=== PATIENT | male | born 1955 | race African-American/Black ===

== ENCOUNTER 2018-07-22 13:43 | Emergency (ER) | payer OTHER ==
--- NOTE | 2018-07-22 13:58 | PDOC ---
History of Present Illness - General Chief Complaint: Headache Stated Complaint: HEADACHE Time Seen by Provider: 07/22/18 13:58 - History of Present Illness Initial Comments: 07/22/18 14:31 62yo male with hx of tension headaches presents for eval of a tension nobles. Pt states the nobles has been present x 2 weeks. States the headache started gradually and has been worsening. States he used to take elavil and baclofen for the nobles. States he follows with a PMD at [facility] and an orthopedic surgeon at [facility]. Pt states he has appts to see both docs the 2nd week of July. Pt denies head trauma. States he has chronic neck pain, R shoulder pain, and b/l hip pain. Pt with hx of surgery to the R shoulder, b/l hip replacements. Pt denies f/c. No blurred vision. No change in vision. No paresthesias. No weakness. No cp/sob. No cough. NO abd pain. No n/v./d. States he had his meds refilled 3 weeks ago but his elavil and baclofen and percocet were not refilled. Pt states this nobles is similar to prior tension nobles in the past. PMHx: DM, COPD, HTN PShx: R shoulder, b/l hip sx Allergies: ASA-gastric ulcer bleeding Past History - Past Medical History Allergies/Adverse Reactions: Allergies Allergy/AdvReac Type Severity Reaction Status Date / Time aspirin AdvReac Intermediate Verified 07/22/18 13:45 Home Medications: Ambulatory Orders Baclofen 10 mg PO TID PRN #12 tablet 07/22/18 Losartan Potassium 50 mg PO DAILY 07/22/18 Metformin HCl [Glucophage] 1,000 mg PO BID 07/22/18 Salmeterol/Fluticasone [Advair 100Mcg/50Mcg -] 1 puff IH DAILY 07/22/18 Zolpidem Tartrate [Ambien] 5 mg PO HS 07/22/18 Diabetes: Yes HTN: Yes - Suicide/Smoking/Psychosocial Hx Smoking History: Former smoker Have you smoked in the past 12 months: No If you are a former smoker, when did you quit?: 1 YEAR 'Breaking Loose' booklet given: 08/16/13 Hx Alcohol Use: Yes (RARE) Substance Use Type: Alcohol Review of Systems - Review of Systems Able to Perform ROS?: Yes Is the patient limited Honduran proficient: No Constitutional: No: Chills, Fever HEENTM: No: Eye Pain, Blurred Vision, Nose Pain, Nose Congestion, Throat Pain Respiratory: No: Cough, Shortness of Breath, SOB with Exertion, SOB at Rest, Wheezing Cardiac (ROS): No: Chest Pain, Lightheadedness, Palpitations ABD/GI: No: Diarrhea, Nausea, Vomiting, Abdominal cramping : No: Burning, Dysuria Musculoskeletal: No: Back Pain, Neck Pain Integumentary: No: Bruising, Rash Neurological: Yes: Headache. No: Numbness, Paresthesia, Seizure, Tingling, Weakness, Unsteady Gait, Ataxia All Other Systems: Reviewed and Negative *Physical Exam - Vital Signs 07/22/18 14:35 Selected Entries 07/22/18 13:44 Temperature 98.4 F Pulse Rate 104 H Respiratory 16 Rate Blood Pressure 127/93 Blood Pressure 104 Mean O2 Sat by Pulse 96 Oximetry (%) Weight 145.15 kg - Physical Exam General Appearance: Yes: Nourished, Appropriately Dressed. No: Apparent Distress HEENT: positive: EOMI, JENNIFER, Normal Voice, Pharynx Normal. negative: Rhinorrhea Neck: positive: Supple, Other (no stepoffs, no midline ttp, no deformities). negative: Rigid Respiratory/Chest: positive: Lungs Clear, Normal Breath Sounds. negative: Chest Tender, Respiratory Distress Cardiovascular: positive: Regular Rhythm, Regular Rate, S1, S2 Gastrointestinal/Abdominal: positive: Normal Bowel Sounds, Soft. negative: Guarding, Rebound, Tenderness Musculoskeletal: positive: Normal Inspection. negative: CVA Tenderness Extremity: positive: Normal Capillary Refill, Normal Inspection, Normal Range of Motion. negative: Swelling, Calf Tenderness Integumentary: positive: Normal Color, Dry, Warm Neurologic: positive: product marketing director II-XII NML intact, Fully Oriented, Alert, Normal Mood/ Affect, Normal Response, Motor Strength 5/5, Responsive. negative: Numbness, Sensory Deficit ED Treatment Course - LABORATORY CBC & Chemistry Diagram: 07/22/18 14:37 07/22/18 14:37 Medical Decision Making - Medical Decision Making 07/22/18 14:36 a/p: 62yo male with hx of tension nobles - dx at [facility] with a nobles x 2 weeks -neuro intact -hx of head trauma 3 years ago, had imaging at the time -nobles since the head trauma -hx of DM and does not check his glucose -will check labs, toradol, reglan, ivf -will monitor and reassess 07/22/18 15:09 re-eval: pt states nobles resolved requesting a dose of baclofen to help his chronic neck pain will dose in the ED labs reviewed and discussed with the patient. 07/22/18 15:54 pt feeling much better no pain at this time stable for dc to home. discussed follow up with neurology and his pmd/ortho as scheduled answered all questions. *DC/Admit/Observation/Transfer Diagnosis at time of Disposition: Headache - Discharge Dispostion Disposition: HOME Condition at time of disposition: Stable Decision to Admit order: No - Prescriptions Prescriptions: Baclofen 10 mg PO TID PRN #12 tablet PRN Reason: Muscle Spasms - Referrals Referrals: Adin Capone MD [Staff Physician] - - Patient Instructions Printed Discharge Instructions: DI for Headache Additional Instructions: Please take all medications as prescribed. Please take tylenol as needed for the headache. Please follow up with your PMD and your orthopedic surgeon as scheduled. Please return to the ED with any further concerns or complaints. - Post Discharge Activity
[2018-07-22 14:01] VITALS: BP 127/93; PULSE 104; TEMP 98.4; BMI 39.9
[2018-07-22] MEDS ORDERED: KETOROLAC TROMETHAMINE 30 MG/1 ML VIAL IVPUSH ONE (14:15)
[2018-07-22] MEDS ORDERED: METOCLOPRAMIDE HCL INJECTION 10 MG/2 ML VIAL IVPUSH ONE (14:15)
[2018-07-22] MEDS ORDERED: SODIUM CHLORIDE 0.9% 1000 ML INFUS.BAG IV ONE (14:15)
[2018-07-22] MEDS ORDERED: METOCLOPRAMIDE HCL INJECTION 10 MG/2 ML VIAL ONE (14:39)
[2018-07-22] MEDS ORDERED: KETOROLAC TROMETHAMINE 30 MG/1 ML VIAL ONE (14:39)
[2018-07-22 14:52] LABS: BASO % 1.9 % (0-2.0); EOS % 3.6 % (0-4.5); HEMATOCRIT 45.9 % (35.4-49); HEMOGLOBIN 14.7 GM/dl (11.7-16.9); LYMPH % 24.1 % (8-40); MCH 25.5 pg (25.7-33.7); MEAN CELL VOLUME 79.8 fl (80-96); MEAN PLT VOLUME 8.7 fl (7.5-11.1); MONO % 5.9 % (3.8-10.2); NEUT % 64.5 % (42.8-82.8); PLATELET COUNT 414 K/MM3 (134-434); RBC 5.76 M/mm3 (4.00-5.60); RDW 15.9 % (11.9-15.9); WHITE BLOOD COUNT 7.6 K/mm3 (4.0-10.8)
[2018-07-22 15:00] LABS: ALBUMIN 3.7 g/dl (3.5-5.0); ALK PHOS 73 U/L (32-92); ANION GAP 7 MMOL/L (8-16); BILIRUBIN,TOTAL 0.5 mg/dl (0.2-1.0); BLOOD UREA NITROGEN 19 mg/dl (7-18); CHLORIDE 101 mmol/L (98-107); CO2 30 mmol/L (22-28); CREATININE 1.2 mg/dl (0.6-1.3); GLUCOSE,RANDOM 188 mg/dl (74-106); POTASSIUM 3.8 mmol/L (3.5-5.1); SGOT/AST 21 U/L (10-42); SGPT/ALT 17 U/L (10-40); SODIUM 138 mmol/L (136-145); TOT PROT 7.8 g/dl (6.4-8.3)
[2018-07-22] MEDS ORDERED: BACLOFEN 10 MG TABLET (FP) PO ONE (15:09)
== END 2018-07-22 16:09 | disposition home or self-care (01) ==
LOC: FER 13:43
PROC: 3E0337Z Introduction of Electrolytic and Water Balance Substance into Peripheral Vein, Percutaneous Approach (ICD-10-PCS; principal; 2018-07-22)
PROC: 3E0333Z Introduction of Anti-inflammatory into Peripheral Vein, Percutaneous Approach (ICD-10-PCS; 2018-07-22)
PROC: 3E033GC Introduction of Other Therapeutic Substance into Peripheral Vein, Percutaneous Approach (ICD-10-PCS; 2018-07-22)
DX: R51 Headache (principal); Z87.891 Personal history of nicotine dependence; I10 Essential (primary) hypertension; E11.9 Type 2 diabetes mellitus without complications
CPT/HCPCS: 36415; 80053; 85025; 99282-25; J0475; J7030

== ENCOUNTER 2018-09-04 21:46 | Emergency (ER) | payer OTHER ==
--- NOTE | 2018-09-04 21:54 | PDOC ---
History of Present Illness - General History Source: Patient Exam Limitations: No Limitations - History of Present Illness Initial Comments: 09/04/18 22:11 The patient is a 63 year old male, with a significant past medical history of COPD and tension headaches who presents to the emergency department with several days of a tension headache. The patient notes he did not take any medication for the pain. The patients pain is aggravated when lying down but subsides after a while. Patient states he takes elavil and baclofen for his blood pressure. The patient has an appointment with his neurologist 2 days from today. PAST SURGICAL HISTORY: Shoulder surgery (2011) FAMILY HISTORY: no pertinent history SOCIAL HISTORY: Pt lives with family and is employed. Every day smoker (1 pack a day) MEDICATIONS: reviewed ALLERGIES: Aspirin <Carli Talamantes - Last Filed: 09/04/18 22:15> - General History Source: Patient Exam Limitations: No Limitations - History of Present Illness Initial Comments: 09/04/18 21:59 A portion of this note was documented by scribe services under my direction. I have reviewed the details of the note, within reason, and agree with the documentation with the following case summary and management plan written by me. Patient treated in the ED. Nursing notes are reviewed and incorporated into the medical decision-making. Vital signs reviewed. Assessment plan: This is 63-year-old male who comes in complaining of a tension headache. Patient has not taken anything for his headache. Patient has an appointment with a neurologist for 2 days from now to it follow-up regarding his headaches in addition to that patient is on losartan for hypertension and has not taken his losartan in a couple of days either. We'll give patient Toradol, Reglan, losartan and reassess 09/04/18 22:37 Reevaluation, patient's symptoms have resolved. Patient was better and wants to go home <Janet Cristina I - Last Filed: 09/04/18 22:38> - General Chief Complaint: Pain, Acute Stated Complaint: TENSION HEADACHE Time Seen by Provider: 09/04/18 21:51 Past History <Carli Talamantes - Last Filed: 09/04/18 22:15> - Past Medical History COPD: Yes Diabetes: Yes HTN: Yes - Suicide/Smoking/Psychosocial Hx Smoking History: Former smoker Have you smoked in the past 12 months: No Number of Cigarettes Smoked Daily: 15 If you are a former smoker, when did you quit?: 1 YEAR 'Breaking Loose' booklet given: 08/16/13 Hx Alcohol Use: Yes (RARE) Drug/Substance Use Hx: Yes (WEED) Substance Use Type: Alcohol <Janet Cristina I - Last Filed: 09/04/18 22:38> - Past Medical History Allergies/Adverse Reactions: Allergies Allergy/AdvReac Type Severity Reaction Status Date / Time aspirin AdvReac Intermediate Verified 09/04/18 21:48 Home Medications: Ambulatory Orders Baclofen 10 mg PO TID PRN #12 tablet 07/22/18 Losartan Potassium 50 mg PO DAILY 07/22/18 Metformin HCl [Glucophage] 1,000 mg PO BID 07/22/18 Salmeterol/Fluticasone [Advair 100Mcg/50Mcg -] 1 puff IH DAILY 07/22/18 Zolpidem Tartrate [Ambien] 5 mg PO HS 07/22/18 Amitriptyline HCl 25 mg PO DAILY 09/04/18 Review of Systems - Review of Systems Able to Perform ROS?: Yes Comments:: 09/04/18 22:13 General: No fevers or chills, no weakness, no weight loss HEENT: No change in vision. No sore throat,. No ear pain CardioVascular: No chest pain or shortness of breath Respiratory:No cough, or wheezing. Gastrointestinal: no nausea, vomiting, diarrhea or constipation, No rectal bleeding Genitourinary: No dysuria, hematuria, or frequency Musculoskeletal: No joint or muscle pain or swelling Neurologic: (+) tension headache. No vertigo, dizziness or loss of consciousness Psychiatric: nor depression Skin: No rashes or easy bruising Endocrine: no increased thirst or abnormal weight change Allergic: no skin or latex allergy All other systems reviewed and normal All Other Systems: Reviewed and Negative <Carli Talamantes - Last Filed: 09/04/18 22:15> *Physical Exam - Vital Signs Last Vital Signs Temp Pulse Resp BP Pulse Ox 98.1 F 93 H 20 157/93 100 09/04/18 21:52 09/04/18 21:52 09/04/18 21:52 09/04/18 21:52 09/04/18 21:52 - Physical Exam Comments: 09/04/18 22:13 GENERAL: The patient is awake, alert, and fully oriented, in no acute distress. HEAD: Normal with no signs of trauma. EYES: Pupils equal, round and reactive to light, extraocular movements intact, sclera anicteric, conjunctiva clear. EXTREMITIES: Normal range of motion, no edema. NEUROLOGICAL: Normal speech, normal gait. PSYCH: Normal mood, normal affect. SKIN: Warm, Dry, normal turgor, no rashes or lesions noted. <Carli Talamantes - Last Filed: 09/04/18 22:15> Moderate Sedation - Procedure Monitoring Vital Signs: Procedure Monitoring Vital Signs Temperature 98.1 F 09/04/18 21:52 Pulse Rate 93 H 09/04/18 21:52 Respiratory Rate 20 09/04/18 21:52 Blood Pressure 157/93 09/04/18 21:52 O2 Sat by Pulse Oximetry (%) 100 09/04/18 21:52 <Carli Talamantes - Last Filed: 09/04/18 22:15> ED Treatment Course - Medications Given in the ED: ED Medications Discontinued Medications Generic Name Dose Route Start Last Admin Trade Name Freq PRN Reason Stop Dose Admin Metoclopramide HCl 10 mg 09/04/18 21:58 09/04/18 22:09 Reglan Injection - IM 09/04/18 21:59 10 mg ONCE ONE Administration <Carli Talamantes - Last Filed: 09/04/18 22:15> *DC/Admit/Observation/Transfer - Attestations Scribe Attestion: 09/04/18 22:14 Documentation prepared by Carli Talamantes, acting as medical supply technician for Janet Cristina MD <Carli Talamantes - Last Filed: 09/04/18 22:15> - Discharge Dispostion Decision to Admit order: No <Janet Cristina I - Last Filed: 09/04/18 22:38> Diagnosis at time of Disposition: Headache - Discharge Dispostion Disposition: HOME Condition at time of disposition: Stable - Patient Instructions Additional Instructions: Take 2 extra strength Tylenol if symptoms/headache return. Keep your appointment with a neurologist Return to the emergency department immediately with ANY new, persistent or worsening symptoms. Continue any medications as previously prescribed by your physician. You should follow up with your primary doctor as soon as possible regarding today's emergency department visit. . Please make sure your doctor reviews the results of your emergency evaluation. Thank you for coming to the Emergency Department today for your care. It was a pleasure to see you today. Please note that your evaluation is INCOMPLETE until you follow-up with your doctor.
[2018-09-04 21:58] VITALS: BP 157/93; PULSE 93; TEMP 98.1; BMI 43.7
[2018-09-04] MEDS ORDERED: LOSARTAN POTASSIUM 50 MG TABLET (FP) PO ONE (21:58)
[2018-09-04] MEDS ORDERED: KETOROLAC TROMETHAMINE 60 MG/2 ML VIAL IM ONE ×2 (21:58→22:13)
[2018-09-04] MEDS ORDERED: METOCLOPRAMIDE HCL INJECTION 10 MG/2 ML VIAL IM ONE (21:58)
[2018-09-04] MEDS ORDERED: KETOROLAC TROMETHAMINE 60 MG/2 ML VIAL ONE (22:01)
[2018-09-04] MEDS ORDERED: METOCLOPRAMIDE HCL 10 MG TABLET (FP) PO ONE (22:01)
[2018-09-04] MEDS ORDERED: METOCLOPRAMIDE HCL INJECTION 10 MG/2 ML VIAL ONE (22:01)
== END 2018-09-04 22:43 | disposition home or self-care (01) ==
LOC: FER 21:46
PROC: 3E0233Z Introduction of Anti-inflammatory into Muscle, Percutaneous Approach (ICD-10-PCS; principal; 2018-09-04)
PROC: 3E023GC Introduction of Other Therapeutic Substance into Muscle, Percutaneous Approach (ICD-10-PCS; 2018-09-04)
DX: R51 Headache (principal); Z87.891 Personal history of nicotine dependence; E11.9 Type 2 diabetes mellitus without complications; I10 Essential (primary) hypertension; J44.9 Chronic obstructive pulmonary disease, unspecified
CPT/HCPCS: 96372; 99281-25

== ENCOUNTER 2018-12-11 21:07 | Emergency (ER) | payer OTHER ==
[2018-12-11 22:54] LABS: BASO % 1.1 % (0-2.0); EOS % 2.9 % (0-4.5); HEMATOCRIT 38.8 % (35.4-49); HEMOGLOBIN 12.4 GM/dl (11.7-16.9); LYMPH % 17.1 % (8-40); MCH 26.5 pg (25.7-33.7); MCHC 32.1 g/dl (32.0-35.9); MEAN CELL VOLUME 82.5 fl (80-96); MONO % 11.1 % (3.8-10.2); NEUT % 67.8 % (42.8-82.8); PLATELET COUNT 332 K/MM3 (134-434); RDW 15.7 % (11.9-15.9); WHITE BLOOD COUNT 6.7 K/mm3 (4.0-10.8)
[2018-12-11 22:55] LABS: ALBUMIN 3.7 g/dl (3.4-5.0); BILIRUBIN,TOTAL 0.4 mg/dl (0.2-1); CALCIUM 8.4 mg/dl (8.5-10); CREATININE 0.9 mg/dl (0.55-1.3); POTASSIUM 3.7 mmol/L (3.5-5.1); TOT PROT 7.2 g/dl (6.4-8.2)
[2018-12-11 23:03] VITALS: BP 153/94; PULSE 92; TEMP 98; BMI 41.1
--- NOTE | 2018-12-12 03:01 | PDOC ---
Documentation entered by Oleksandr Ulloa SCRIBE, acting as scribe for Susie Garsia MD. Susie Garsia MD: This documentation has been prepared by the Artemio warner Matthew, SCRIBE, under my direction and personally reviewed by me in its entirety. I confirm that the documentation accurately reflects all work, treatment, procedures, and medical decision making performed by me. History of Present Illness - General Chief Complaint: Respiratory Stated Complaint: COPD X 3 WEEKS Time Seen by Provider: 12/11/18 21:11 History Source: Patient Exam Limitations: No Limitations - History of Present Illness Initial Comments: 12/11/18 22:44 Patient is a 63 year old male with a significant past medical history of DM, COPD, HTN who presents to the ED with complaints of shortness of breath that began x2 weeks ago. Patient reports experiencing intermittent episodes of increased shortness of breath as well as associated symptoms of left arm pain that begins at the shoulder blade and radiates down the arm. He reports coming into the ED after the shortness of breath and arm pain began to gradually increase in intensity. Denies chest pain. Denies nausea, vomiting. Denies dysuria, hematuria. Denies constipation, diarrhea. Denies contact with sick individuals, out of state travelling. Denies any other symptoms. Allergies: Aspirin Social history: No smoking. No alcohol. No illicit drugs. Surgical history: bilateral hip replacement surgery s/p march 2018 PMD: Not on staff Past History - Past Medical History Allergies/Adverse Reactions: Allergies Allergy/AdvReac Type Severity Reaction Status Date / Time aspirin AdvReac Intermediate Verified 09/04/18 21:48 Home Medications: Ambulatory Orders Baclofen 10 mg PO TID PRN #12 tablet 07/22/18 Losartan Potassium 50 mg PO DAILY 07/22/18 Metformin HCl [Glucophage] 1,000 mg PO BID 07/22/18 Salmeterol/Fluticasone [Advair 100Mcg/50Mcg -] 1 puff IH DAILY 07/22/18 Zolpidem Tartrate [Ambien] 5 mg PO HS 07/22/18 Amitriptyline HCl 25 mg PO DAILY 09/04/18 COPD: Yes Diabetes: Yes HTN: Yes - Suicide/Smoking/Psychosocial Hx Smoking History: Former smoker Have you smoked in the past 12 months: No Number of Cigarettes Smoked Daily: 15 If you are a former smoker, when did you quit?: 1 YEAR 'Breaking Loose' booklet given: 09/04/18 Hx Alcohol Use: Yes (RARE) Drug/Substance Use Hx: Yes (WEED) Substance Use Type: Alcohol Review of Systems - Review of Systems Able to Perform ROS?: Yes Comments:: 12/11/18 22:44 GENERAL/CONSTITUTIONAL: No fever or chills. No weakness. HEAD, EYES, EARS, NOSE AND THROAT: No change in vision. No ear pain or discharge. No sore throat. CARDIOVASCULAR: No chest pain or shortness of breath. RESPIRATORY: No cough, wheezing, or hemoptysis. GASTROINTESTINAL: +SOB No nausea, vomiting, diarrhea or constipation. GENITOURINARY: No dysuria, frequency, or change in urination. MUSCULOSKELETAL: No joint or muscle swelling or pain. No neck or back pain. SKIN: No rash NEUROLOGIC: No headache, vertigo, loss of consciousness, or change in strength/ sensation. ENDOCRINE: No increased thirst. No abnormal weight change. HEMATOLOGIC/LYMPHATIC: No anemia, easy bleeding, or history of blood clots. ALLERGIC/IMMUNOLOGIC: No hives or skin allergy. *Physical Exam - Vital Signs Last Vital Signs Temp Pulse Resp BP Pulse Ox 98 F 92 H 22 H 153/94 93 L 12/11/18 22:56 12/11/18 22:56 12/11/18 22:56 12/11/18 22:56 12/11/18 22:56 - Physical Exam Comments: 12/11/18 22:44 GENERAL: Awake, alert, and fully oriented, in no acute distress HEAD: No signs of trauma EYES: PERRLA, EOMI, sclera anicteric, conjunctiva clear ENT: Auricles normal inspection, hearing grossly normal, nares patent, oropharynx clear without exudates. Moist mucosa NECK: Normal ROM, supple, no lymphadenopathy, JVD, or masses LUNGS: +}distant breath sounds. Breath sounds equal, No wheezes, and no crackles HEART: Regular rate and rhythm, normal S1 and S2, no murmurs, rubs or gallops ABDOMEN: Soft, nontender, normoactive bowel sounds. No guarding, no rebound. No masses EXTREMITIES: Normal range of motion, no edema. No clubbing or cyanosis. No cords, erythema, or tenderness NEUROLOGICAL: Cranial nerves II through XII grossly intact. Normal speech, normal gait SKIN: Warm, Dry, normal turgor, no rashes or lesions noted. ED Treatment Course - LABORATORY CBC & Chemistry Diagram: 12/11/18 22:15 12/11/18 22:15 - ADDITIONAL ORDERS Additional order review: Laboratory Results 12/11/18 12/11/18 22:15 22:15 Sodium 139 Potassium 3.7 Chloride 103 Carbon Dioxide 23 Anion Gap 13 BUN 19 H Creatinine 0.9 Est GFR (CKD-EPI)AfAm 106.46 Est GFR (CKD-EPI)NonAf 91.86 Random Glucose 116 H Calcium 8.4 L Total Bilirubin 0.4 AST 37 ALT 34 Alkaline Phosphatase 66 Creatine Kinase 1061 H Creatine Kinase Index 1.0 CK-MB (CK-2) 11.2 H Troponin I < 0.03 Total Protein 7.2 Albumin 3.7 12/11/18 22:15 RBC 4.70 MCV 82.5 MCHC 32.1 RDW 15.7 MPV 9.0 Neutrophils % 67.8 Lymphocytes % 17.1 D Monocytes % 11.1 H D Eosinophils % 2.9 Basophils % 1.1 - RADIOLOGY Radiology Studies Ordered: Category Date Time Status CHEST PA & LAT [RAD] Stat Radiology 12/11/18 22:08 Taken *DC/Admit/Observation/Transfer Diagnosis at time of Disposition: COPD (chronic obstructive pulmonary disease) Qualifiers: COPD type: emphysema Emphysema type: unspecified Qualified Code(s): J43.9 - Emphysema, unspecified Sleep apnea Qualifiers: Sleep apnea type: unspecified type Qualified Code(s): G47.30 - Sleep apnea, unspecified - Discharge Dispostion Disposition: HOME Condition at time of disposition: Stable - Referrals Referrals: Barber Alonzo MD [Staff Physician] - - Patient Instructions Printed Discharge Instructions: DI for Obstructive Sleep Apnea -- Adult Additional Instructions: Call Dr. Alonzo's office (vending machine collector) tomorrow and arrange follow-up within the next 2-3 days Continue present medications as previously prescribed until seen by Dr. Alonzo Continue CPAP at night Return to ER if you have severe shortness of breath/chest pain/fever or severe cough - Post Discharge Activity - Attestations Scribe Attestion: 12/11/18 21:45 Documentation prepared by Oleksandr Ulloa, acting as veterinary medical officer for Susie Garsia MD.
--- NOTE | 2018-12-12 12:17 | EKG ---
Test Reason : Blood Pressure : / mmHG Vent. Rate : 079 BPM Atrial Rate : 079 BPM P-R Int : 168 ms QRS Dur : 086 ms QT Int : 376 ms P-R-T Axes : 049 072 045 degrees QTc Int : 431 ms NORMAL SINUS RHYTHM NORMAL ECG NO PREVIOUS ECGS AVAILABLE Confirmed by MD Prieto, Nirmal ([id number]) on 12/12/2018 12:17:21 PM Referred By: DR MENDOZA Confirmed By:Nirmal Moreau MD
== END 2018-12-12 02:50 | disposition home or self-care (01) ==
LOC: FER 21:07
DX: J43.9 Emphysema, unspecified (principal); G47.30 Sleep apnea, unspecified; Z87.891 Personal history of nicotine dependence; E11.9 Type 2 diabetes mellitus without complications; I10 Essential (primary) hypertension; Z79.84 Long term (current) use of oral hypoglycemic drugs
CPT/HCPCS: 36415; 71046-TC-FY; 71275-TC; 80053; 82550; 82553; 84484; 85025; 93005; 99281-25

== ENCOUNTER 2019-02-12 18:44 | Emergency (ER) | payer OTHER ==
[2019-02-12 19:01] VITALS: BP 141/90; PULSE 89; TEMP 98.5; BMI 45.0
--- NOTE | 2019-02-12 19:26 | PDOC ---
History of Present Illness - General Chief Complaint: Pain Stated Complaint: left shoulder pain Time Seen by Provider: 02/12/19 19:26 History Source: Patient Exam Limitations: No Limitations - History of Present Illness Initial Comments: 02/12/19 20:17 Deandre Montes is a 63yM with PMHx of HTN, HLD, obesity, diabetes, COPD, C5-6 disc herniation presenting with L shoulder pain. 3 weeks ago, neurologist gave him neck injections which precipitated progressively worsening pain in L upper trapezius region radiating down to L elbow. Takes flexeril and ativan without relief. Pain not exacerbated with exertion. Denies fever, nausea, SOB, chest/AB pain, urinary or bowel changes. Past History - Past Medical History Allergies/Adverse Reactions: Allergies Allergy/AdvReac Type Severity Reaction Status Date / Time aspirin AdvReac Intermediate Verified 02/12/19 18:45 Home Medications: Ambulatory Orders Losartan Potassium 50 mg PO DAILY 07/22/18 Metformin HCl [Glucophage] 1,000 mg PO BID 07/22/18 Salmeterol/Fluticasone [Advair 100Mcg/50Mcg -] 1 puff IH DAILY 07/22/18 Zolpidem Tartrate [Ambien] 5 mg PO HS PRN 07/22/18 Cyclobenzaprine HCl [Flexeril -] 10 mg PO BID 02/12/19 Naproxen 375 mg PO BID 14 Days #28 tablet 02/12/19 COPD: Yes Diabetes: Yes HTN: Yes - Suicide/Smoking/Psychosocial Hx Smoking History: Current every day smoker Have you smoked in the past 12 months: Yes Number of Cigarettes Smoked Daily: 10 If you are a former smoker, when did you quit?: 1 YEAR Information on smoking cessation initiated: Yes 'Breaking Loose' booklet given: 09/04/18 Hx Alcohol Use: No Drug/Substance Use Hx: No Substance Use Type: Alcohol Review of Systems - Review of Systems Constitutional: No: Chills, Fever, Malaise, Weakness HEENTM: No: Eye Pain, Nose Pain, Nose Bleeding, Hearing Loss, Mouth Pain Respiratory: No: Cough, Shortness of Breath Cardiac (ROS): No: Chest Pain, Edema, Lightheadedness, Palpitations, Syncope ABD/GI: No: Abdominal Distended, Constipated, Diarrhea, Nausea, Vomiting : No: Burning, Dysuria, Discharge, Frequency, Flank Pain, Hematuria Musculoskeletal: Yes: Neck Pain (left). No: Back Pain, Joint Pain Integumentary: No: Bruising, Dryness, Erythema, Flushing Neurological: No: Headache, Paresthesia, Seizure, Tingling, Tremors Psychiatric: No: Anxiety, Depression Endocrine: No: Excessive Sweating, Flushing, Intolerance to Cold, Intolerance to Heat Hematologic/Lymphatic: No: Anemia, Blood Clots, Easy Bleeding *Physical Exam - Vital Signs Last Vital Signs Temp Pulse Resp BP Pulse Ox 98.5 F 89 20 141/90 96 02/12/19 18:44 02/12/19 18:44 02/12/19 18:44 02/12/19 18:44 02/12/19 18:44 - Physical Exam General Appearance: Yes: Nourished, Appropriately Dressed, Mild Distress HEENT: positive: EOMI, JENNIFER, Normal Voice, Hearing Grossly Normal. negative: Pale Conjunctivae, Nasal Congestion, Rhinorrhea, Lesions Neck: positive: Trachea midline, Supple, Other (Neck: full ROM, 4/5 strength to left, 5/5 strength to right. Moderate tenderness to palpation over L trapezius region. +2 radial pulses, normal sensation). negative: Tender, Rigid Respiratory/Chest: positive: Lungs Clear, Normal Breath Sounds. negative: Chest Tender, Respiratory Distress, Labored Respiration, Crackles, Rales, Rhonchi, Stridor, Wheezing Cardiovascular: positive: Regular Rhythm, Regular Rate, S1, S2. negative: Edema , Murmur Gastrointestinal/Abdominal: positive: Normal Bowel Sounds, Flat, Soft. negative : Tender, Organomegaly, Distended, Guarding, Rebound Neurologic: positive: community product specialist II-XII NML intact, Fully Oriented, Alert, Normal Mood/ Affect, Normal Response, Motor Strength 5/5. negative: Responsive, Numbness, Sensory Deficit, Confused, Disoriented Medical Decision Making - Medical Decision Making 02/12/19 20:22 toradol, prednisone trop, ekg, cxr Deandre Montes is a 63yM with PMHx of HTN, HLD, obesity, diabetes, COPD, C5-6 disc herniation presenting with L shoulder pain. Likely MSK exacerbation based on acute exacerbation after neck injection and chronic neck pain. Consider radiculopathy based on shooting pain presentation. ACS unlikely d/t negative trop, normal ekg and cxr. Given toradol, gabapentin, prednisone with pain relief. Plan to d/c with prescribed naproxen. Signed out to Dr. Chavez *DC/Admit/Observation/Transfer Diagnosis at time of Disposition: Left shoulder pain Qualifiers: Chronicity: acute Qualified Code(s): M25.512 - Pain in left shoulder - Discharge Dispostion Disposition: HOME Condition at time of disposition: Improved Decision to Admit order: No - Prescriptions Prescriptions: Naproxen 375 mg PO BID 14 Days #28 tablet - Referrals - Patient Instructions Printed Discharge Instructions: DI for Shoulder Pain Additional Instructions: You were seen in the ED for left shoulder pain. You were given medication to relieve your pain. Your lab results and imaging did not show anything concerning. Please make an appointment with your PCP and neurologist concerning your shoulder and back pain. Take the prescribed medication as directed. Come back to the ED if you cannot move your head, vomiting, or have fever. - Post Discharge Activity
[2019-02-12] MEDS ORDERED: SODIUM CHLORIDE 0.9% 500 ML INFUS.BAG IV ONE (19:55)
[2019-02-12] MEDS ORDERED: DEXAMETHASONE SOD PHOSPHATE 20 MG/5 ML VIAL IVPB ONE (19:55)
[2019-02-12] MEDS ORDERED: KETOROLAC TROMETHAMINE 30 MG/1 ML VIAL IVPUSH ONE (19:57)
--- NOTE | 2019-02-12 20:20 | PDOC ---
Attending Attestation - Resident Resident Name: Roderick Duncan - ED Attending Attestation I have performed the following: I have examined & evaluated the patient, The case was reviewed & discussed with the resident, I agree w/resident's findings & plan, Exceptions are as noted - HPI HPI: 02/12/19 20:20 This is a 63-year-old male who comes in complaining of 3 weeks of the left upper shoulder radiating down the outside of his arm. Patient was recently at his neurologist and had an injection he does not know what was injected. Patient has a history significant for a disc herniation at C5. Patient does not have a pain specialist to manage his pain and comes in complaining of increased pain over the last 3 weeks. Patient denies any shortness of breath, chest pain, nausea, diaphoresis or any cardiac symptoms. Patient however does have multiple cardiac risk factors. Allergies: as per nursing notes Past Medical History: none Social history: Lives with family. No smoking. No alcohol. No illicit drugs. Surgical history: None General: No fevers or chills, no weakness, no weight loss HEENT: No change in vision. No sore throat,. No ear pain CardioVascular: no chest discomfort. No shortness of breath Respiratory:No cough, or wheezing. Gastrointestinal: no nausea, vomiting, diarrhea or constipation, No rectal bleeding Genitourinary: No dysuria, hematuria, or frequency Musculoskeletal: Left shoulder pain as per history of present illness Neurologic: No headache, vertigo, dizziness or loss of consciousness Psychiatric: nor depression Skin: No rashes or easy bruising Endocrine: no increased thirst or abnormal weight change Allergic: no skin or latex allergy All other systems reviewed and normal - Physicial Exam PE: 02/12/19 20:23 GENERAL: The patient is awake, alert, and fully oriented, in no acute distress. HEAD: Normal with no signs of trauma. EYES: Pupils equal, round and reactive to light, extraocular movements intact, sclera anicteric, conjunctiva clear. EXTREMITIES:atraumatic, Normal range of motion, no edema. There is some tenderness and spasm on palpation of the lateral neck and upper shoulder area. Neurovascular distal is intact. NEUROLOGICAL: Normal speech, normal gait. PSYCH: Normal mood, normal affect. SKIN: Warm, Dry, normal turgor, no rashes or lesions noted. 07/22/19 22:09 - Medical Decision Making 02/12/19 20:24 This is a 18-year-old male with 3 weeks of left shoulder pain and no associated cardiac symptoms. Patient however does have multiple risk factors for coronary disease so cardiac workup obtained including EKG and cardiac enzymes including troponin. Patient given Toradol and a dose of Decadron for the neck pain as this most likely secondary to an inflammatory reaction from his disc herniation. 02/12/19 22:10 EKG shows normal sinus rhythm at a rate of 88, no acute ST-T wave changes Patient's troponin is not measurable Patient discharged home with anti-inflammatories, and told to follow-up with his primary care doctor for additional pain management.
[2019-02-12] MEDS ORDERED: KETOROLAC TROMETHAMINE 30 MG/1 ML VIAL IM ONE (20:37)
[2019-02-12] MEDS ORDERED: predniSONE 20 MG TABLET (UD) PO ONE (20:38)
[2019-02-12] MEDS ORDERED: predniSONE 20 MG TABLET (UD) ONE (20:42)
[2019-02-12] MEDS ORDERED: KETOROLAC TROMETHAMINE 60 MG/2 ML VIAL ONE (20:42)
[2019-02-12] MEDS ORDERED: GABAPENTIN 300 MG CAPSULE (FP) PO ONE (22:12)
--- NOTE | 2019-02-13 13:42 | EKG ---
Test Reason : Blood Pressure : / mmHG Vent. Rate : 088 BPM Atrial Rate : 088 BPM P-R Int : 160 ms QRS Dur : 084 ms QT Int : 376 ms P-R-T Axes : 061 075 047 degrees QTc Int : 454 ms NORMAL SINUS RHYTHM POSSIBLE LEFT ATRIAL ENLARGEMENT BORDERLINE ECG WHEN COMPARED WITH ECG OF 11-DEC-2018 23:10, NO SIGNIFICANT CHANGE WAS FOUND Confirmed by Edison Taylor MD ([id number]) on 02/13/2019 1:42:06 PM Referred By: DR HALL Confirmed By:Edison Taylor MD
== END 2019-02-12 22:59 | disposition home or self-care (01) ==
LOC: FER 18:44
PROC: 3E0233Z Introduction of Anti-inflammatory into Muscle, Percutaneous Approach (ICD-10-PCS; principal; 2019-02-12)
DX: M25.512 Pain in left shoulder (principal); I10 Essential (primary) hypertension; E78.5 Hyperlipidemia, unspecified; E11.9 Type 2 diabetes mellitus without complications; J44.9 Chronic obstructive pulmonary disease, unspecified; F17.210 Nicotine dependence, cigarettes, uncomplicated
CPT/HCPCS: 36415; 71046-TC-FY; 82550; 82553; 84484; 93005; 96372; 99282-25

== ENCOUNTER 2022-01-02 01:37 | Emergency (ER) | payer OTHER ==
[2022-01-02 01:52] VITALS: BP 135/91; PULSE 90; TEMP 99.4; BMI 45.1
[2022-01-02] MEDS ORDERED: predniSONE 20 MG TABLET (UD) ONE ×2 (01:58→02:05)
[2022-01-02] MEDS ORDERED: ALBUTEROL SO4 2.5/IPRATROPIUM 0.5 INH SOL 3 ML VIAL.NEB. NEB ONE (01:58)
[2022-01-02] MEDS ORDERED: ALBUTEROL SO4 2.5/IPRATROPIUM 0.5 INH SOL 3 ML VIAL.NEB. NEB SCH (02:00)
[2022-01-02] MEDS ORDERED: predniSONE 20 MG TABLET (UD) PO ONE (02:02)
== END 2022-01-02 03:09 | disposition home or self-care (01) ==
LOC: FER 01:37
PROC: 3E0F7GC Introduction of Other Therapeutic Substance into Respiratory Tract, Via Natural or Artificial Opening (ICD-10-PCS; principal; 2022-01-02)
DX: J44.1 Chronic obstructive pulmonary disease with (acute) exacerbation (principal)
CPT/HCPCS: 99283-25

== ENCOUNTER 2023-07-27 18:27 | Emergency (ER) | payer OTHER ==
[2023-07-27 18:42] VITALS: BP 116/74; BMI 39.4
[2023-07-27] MEDS ORDERED: ACETAMINOPHEN 500 MG TABLET (FP) ONE (19:30)
[2023-07-27] MEDS ORDERED: ACETAMINOPHEN 500 MG TABLET (FP) PO ONE (19:34)
[2023-07-27 21:14] VITALS: PULSE 75; RESP 18; TEMP 98.9
== END 2023-07-27 21:14 | disposition home or self-care (01) ==
LOC: FER 18:27
DX: R07.9 Chest pain, unspecified (principal); R05.9 Cough, unspecified; J18.9 Pneumonia, unspecified organism; Z20.822 Contact with and (suspected) exposure to COVID-19
CPT/HCPCS: 0241U-QW; 71046-TC-FY; 93005; 99285-25